=== PATIENT | female | born 1955 | race Caucasian/White ===

== ENCOUNTER 2017-05-30 17:58 | Inpatient (IN) | payer MEDICARE, OTHER ==
[~2017-05-30] VITALS: Ht 172.7 cm; Wt 127.5 kg
[2017-05-30 18:30] LABS: BASO # 0.1 x10^3/uL (0.0-0.2); BASO % 2 % (0-3); EOS % 2 % (0-3); HEMATOCRIT 36.3 % (36.0-47.0); HEMOGLOBIN 12.2 g/dL (12.0-15.5); LYMPH # 2.2 x10^3/uL (1.0-4.8); LYMPH % 37 % (24-48); MEAN CORPUSCULAR HEMOGLOBIN 34 pg (25-35); MEAN CORPUSCULAR HGB CONC 34 g/dL (31-37); MEAN CORPUSCULAR VOLUME 100 fL (79-100); MONO % 8 % (0-9); NEUT % 52 % (31-73); PLATELET COUNT 161 x10^3/uL (140-400); RED BLOOD COUNT 3.65 x10^6/uL (3.50-5.40); RED CELL DISTRIBUTION WIDTH 16.1 % (11.5-14.5); WHITE BLOOD COUNT 6.1 x10^3/uL (4.0-11.0)
[2017-05-30] MEDS ORDERED: fentaNYL PF VIAL 100 MCG/2 ML VIAL IV PRN (18:30)
[2017-05-30] MEDS: NITROGLYCERIN SUBLINGUAL 0.4 MG BOTTLE OF 25. SL PRN ×2 (18:32→18:51)
[2017-05-30 18:46] LABS: CALCIUM 9.4 mg/dL (8.5-10.1); CREATININE 0.7 mg/dL (0.6-1.0); GFR 85.6; POTASSIUM 4.5 mmol/L (3.5-5.1)
--- NOTE | 2017-05-30 18:53 | ED.ADGEN ---
Past Medical History Past Medical History: A-Fib, Anemia, Anxiety, Depression, Hypertension, Seizure , Schizophrenia Additional Past Medical Histor: PEPTIC ULCER, PARKINSON'S DISEASE Alcohol Use: None Drug Use: None Adult General Chief Complaint Chief Complaint: CHEST PAIN HPI HPI Patient is a 61 year old [woman, history of atrial fibrillation, hypertension, Parkinson's disease, obesity, neuropathy, Diabetes mellitus, who presents the emergency department via EMS with a complaint of left-sided chest pain that she states began a few hours ago. Patient states that she awoke from a nap, and noted that she was having pain in the left side of her chest, denies any radiation, states it is worse with pressure on the chest and with motion, denies any injuries. Denies any similar to previously. She does feel silly short of breath. She is also complaining of mild nausea. Denies any diarrhea, states that she will have occasional flank pain in the right side for the past several days, and that she is having increasing pain in both her feet. Both lower extremities noted to be tightly wrapped up to the knees, which patient states "is always like that because of the neuropathy". She denies any new injuries, any headache, any lightheadedness or dizziness, any vomiting, any diarrhea, any urinary complaints. Patient presents from [facility]. Patient is declining IV access. Review of Systems Review of Systems Constitutional: Denies fever or chills. [] Eyes: Denies change in visual acuity. [] HENT: Denies nasal congestion or sore throat. [] Respiratory: Denies cough or shortness of breath. [] Cardiovascular: Left-sided chest pain, worse with motion and with palpation. No edema. GI: Denies abdominal pain, nausea, vomiting, bloody stools or diarrhea. [] : Denies dysuria. [] Musculoskeletal: Denies back pain or joint pain. [] Integument: Denies rash. [] Neurologic: Denies headache, focal weakness or sensory changes. [] Endocrine: Denies polyuria or polydipsia. [] Lymphatic: Denies swollen glands. [] Psychiatric: Denies depression or anxiety. [] Current Medications Current Medications Current Medications Medications (Trade) Dose Ordered Sig/Yoan Start Time Stop Time Status Last Admin Dose Admin Fentanyl Citrate (Fentanyl 2ml Vial) 25 mcg PRN Q15MIN PRN 05/30/17 18:30 05/31/17 18:29 05/30/17 18:44 25 MCG Nitroglycerin (Nitrostat) 0.4 mg PRN Q5MIN PRN 05/30/17 18:30 05/30/17 18:51 0.4 MG Allergies Allergies Allergies Coded Allergies Type Severity Reaction Last Updated Verified sulfamethoxazole Allergy Severe Hives 05/30/17 Yes ibuprofen Adverse Reaction Severe 05/30/17 Yes prochlorperazine Adverse Reaction Severe Swelling 05/30/17 Yes carisoprodol Adverse Reaction Intermediate 05/30/17 Yes Penicillins Adverse Reaction Unknown Nausea 05/30/17 Yes diphenhydramine Adverse Reaction Unknown Nausea 05/30/17 Yes Physical Exam Physical Exam Constitutional: Well developed, well nourished, no acute distress, non-toxic appearance. [] HENT: Normocephalic, atraumatic, bilateral external ears normal, oropharynx moist, no oral exudates, nose normal. [] Eyes: PERRLA, EOMI, conjunctiva normal, no discharge. [] Neck: Normal range of motion, no tenderness, supple, no stridor. [] Cardiovascular:Heart rate regular rhythm, no murmur , S1, S2, rubs or gallops. Patient with reproducible left anterior chest wall tenderness to palpation, no crepitus, deformity, lesions identified.[] Lungs & Thorax: Bilateral breath sounds clear to auscultation, no wheezing, rhonchi, rales. No chest wall crepitus as stated. Tenderness is stated.[] Abdomen: Bowel sounds normal, obese, soft, no tenderness, no masses, no pulsatile masses. [] Skin: Warm, dry, no erythema, no rash. [] Back: No tenderness, no CVA tenderness. [] Extremities: No tenderness, no cyanosis, no clubbing, ROM intact, patient with trace pitting bilaterally, with chronic venous stasis changes noted. Patient with significant neuropathy Neurologic: Alert and oriented X 3, normal motor function, normal sensory function, no focal deficits noted. [] Psychologic: Affect normal, judgement normal, mood normal. [] Current Patient Data Vital Signs Vital Signs Date Time Temp Pulse Resp B/P (MAP) Pulse Ox O2 Delivery O2 Flow Rate FiO2 05/30/17 20:00 48 10 123/70 (87) 98 Room Air 05/30/17 18:00 97.6 97.6 Lab Values Laboratory Tests Test 05/30/17 18:10 05/30/17 18:15 White Blood Count 6.1 x10^3/uL (4.0-11.0) Red Blood Count 3.65 x10^6/uL (3.50-5.40) Hemoglobin 12.2 g/dL (12.0-15.5) Hematocrit 36.3 % (36.0-47.0) Mean Corpuscular Volume 100 fL (79-100) Mean Corpuscular Hemoglobin 34 pg (25-35) Mean Corpuscular Hemoglobin Concent 34 g/dL (31-37) Red Cell Distribution Width 16.1 % (11.5-14.5) H Platelet Count 161 x10^3/uL (140-400) Neutrophils (%) (Auto) 52 % (31-73) Lymphocytes (%) (Auto) 37 % (24-48) Monocytes (%) (Auto) 8 % (0-9) Eosinophils (%) (Auto) 2 % (0-3) Basophils (%) (Auto) 2 % (0-3) Neutrophils # (Auto) 3.1 x10^3uL (1.8-7.7) Lymphocytes # (Auto) 2.2 x10^3/uL (1.0-4.8) Monocytes # (Auto) 0.5 x10^3/uL (0.0-1.1) Eosinophils # (Auto) 0.1 x10^3/uL (0.0-0.7) Basophils # (Auto) 0.1 x10^3/uL (0.0-0.2) Prothrombin Time 12.5 SEC (11.7-14.0) Prothrombin Time INR 1.0 (0.8-1.1) PTT 38 SEC (24-38) Sodium Level 137 mmol/L (136-145) Potassium Level 4.5 mmol/L (3.5-5.1) Chloride Level 101 mmol/L (98-107) Carbon Dioxide Level 27 mmol/L (21-32) Anion Gap 9 (6-14) Blood Urea Nitrogen 17 mg/dL (7-20) Creatinine 0.7 mg/dL (0.6-1.0) Estimated GFR (Cockcroft-Gault) 85.6 Glucose Level 96 mg/dL (70-99) Calcium Level 9.4 mg/dL (8.5-10.1) Total Bilirubin 0.2 mg/dL (0.2-1.0) Direct Bilirubin 0.1 mg/dL (0.0-0.2) Aspartate Amino Transferase (AST) 21 U/L (15-37) Alanine Aminotransferase (ALT) 17 U/L (14-59) Alkaline Phosphatase 73 U/L (46-116) Troponin I Quantitative < 0.017 ng/mL (0.000-0.055) AJ-Ivu-T-Type Natriuretic Peptide 175 pg/mL (0-124) H Total Protein 6.3 g/dL (6.4-8.2) L Albumin 2.8 g/dL (3.4-5.0) L Lipase 196 U/L (73-393) Thyroid Stimulating Hormone (TSH) 2.703 uIU/mL (0.358-3.74) Urine Collection Type Unknown Urine Color Yellow Urine Clarity Clear Urine pH 6.5 Urine Specific [place] 1.015 Urine Protein Negative mg/dL (NEG-TRACE) Urine Glucose (UA) Negative mg/dL (NEG) Urine Ketones (Stick) Negative mg/dL (NEG) Urine Blood Negative (NEG) Urine Nitrite Negative (NEG) Urine Bilirubin Negative (NEG) Urine Urobilinogen Dipstick 0.2 mg/dL (0.2 mg/dL) Urine Leukocyte Esterase Negative (NEG) Urine RBC 0 /HPF (0-2) Urine WBC Occ /HPF (0-4) Urine Squamous Epithelial Cells Many /LPF Urine Bacteria Few /HPF (0-FEW) Urine Opiates Screen Pos (NEG) Urine Methadone Screen Neg (NEG) Urine Barbiturates Pos (NEG) Urine Phencyclidine Screen Neg (NEG) Urine Amphetamine/Methamphetamine Neg (NEG) Urine Benzodiazepines Screen Pos (NEG) Urine Cocaine Screen Neg (NEG) Urine Cannabinoids Screen Neg (NEG) Urine Ethyl Alcohol Neg (NEG) Laboratory Tests 05/30/17 18:10 Laboratory Tests 05/30/17 18:10 EKG EKG EC: Sinus rhythm, heart rate 58 beats are minute, upright axis, QTC of 436, MN 172, QRS of 92, no ST elevations or depressions, abnormal ECG, with nonspecific T-wave changes in inferior leads, does not meet STEMI criteria. As interpreted by me. Radiology/Procedures Radiology/Procedures Chest x-ray: One view: Normal cardiopulmonary silhouette, no significant infiltrates, effusions, no pneumothorax, no soft tissue or bone abdomen was identified. As interpreted by me. [facility] [address] [place] [address] IMAGING REPORT Signed PATIENT: MARCO ANTONIO MCCARTY ACCOUNT: [id number] : 1955 LOCATION: ER AGE: 61 SEX: F EXAM STATUS: REG ER ORD. PHYSICIAN: NADEGE KAY DO REASON: Leg swelling/pain/CP/SOB PROCEDURE: VENOUS LOWER EXT BILATERAL BILATERAL LOWER EXTREMITY ULTRASOUND WITH DOPPLER 05/30/2017 7:12 PM Clinical Information: Bilateral lower extremity swelling, chest pain . Comparison: None. Technique: Multiple grayscale, color Doppler, and spectral Doppler sonographic images of the bilateral lower extremity venous structures were obtained. Findings: Evaluation limited secondary to body habitus and lower extremity edema. The right common femoral, femoral, and popliteal veins exhibit normal compression, respiratory phasicity, and augmentation. No intraluminal thrombi are identified. Color Doppler flow is demonstrated in the right posterior tibial and greater saphenous veins. The left common femoral, femoral, and popliteal veins exhibit normal compression, respiratory phasicity, and augmentation. No intraluminal thrombi are identified. Color Doppler flow is demonstrated in the left posterior tibial and greater saphenous veins.. Impression: No evidence for deep venous thrombosis involving bilateral lower extremities. Evaluation of the leg veins is limited secondary to body habitus and lower extremity edema. Electronically signed by: Ange Lucas MD (05/30/2017 7:54 PM) [facility] DICTATED and SIGNED BY: ANGE LUCAS MD DATE: 05/30/171950 CC: NADEGE KAY DO; FARRUKH BHATTI ~ Course & Med Decision Making Course & Med Decision Making Pertinent Labs and Imaging studies reviewed. (See chart for details) Lengthy discussion at bedside with patient regarding utility of IV access, laboratory studies. After lengthy discussion patient is agreeable to being stuck for labs, but is still refusing an IV. I did discuss at length the patient that this will severely limits my ability to evaluate her effectively and provide treatment in the ED. Patient states she understands, however she has had "bad experiences" with IUDs before, and is adamant that she not have an IV placed this time. Laboratory studies obtained, along with x-ray of the chest , and Dopplers of the bilateral extremities. No concerning findings identified. However patient noted to be progressively bradycardic, with heart rate dropping down into the low 40s, and then bumping up into the 60s, with patient's complaint of chest pain, shortness of breath, and other symptoms along with a copy medical history, patient is agreeable for [place] or the hospital, all she still declining IV. We did note that the patient is under guardianship, did attempt to contact patient's listed guardians at several numbers without success. After multiple discussions at bedside, patient is agreeable and having IV placed, multiple attempts made, including by anesthesia GLACIOLOGIST, without success , IV eventually placed in the ED. Patient was evaluated by Dr. Samuel of internal medicine in the emergency department, accepted to her service as a full admission to the medical telemetry floor, with bridge orders entered per discussion. Dragon Disclaimer Dragon Disclaimer This electronic medical record was generated, in whole or in part, using a voice recognition dictation system. Departure Impression: Primary Impression: Bradycardia Additional Impression: Chest pain Disposition: ADMITTED INPATIENT Admitting Physician: Val Samuel Condition: IMPROVED Problem Qualifiers NADEGE KAY DO May 30, 2017 18:53
[2017-05-30 18:54] LABS: ALBUMIN 2.8 g/dL (3.4-5.0); DIRECT BILIRUBIN 0.1 mg/dL (0.0-0.2); TOTAL BILIRUBIN 0.2 mg/dL (0.2-1.0); TOTAL PROTEIN 6.3 g/dL (6.4-8.2)
[2017-05-30 18:58] LABS: BILIRUBIN,URINE NEGATIVE (NEG); GLUCOSE,URINE NEGATIVE (NEG); NITRITE,URINE NEGATIVE (NEG); PH,URINE 6.5; PROTEIN,URINE NEGATIVE (NEG-TRACE); UROBILINOGEN,URINE 0.2 mg/dL (0.2 mg/dL)
[2017-05-30 19:05] LABS: BARBITURATES POS (NEG); BENZODIAZEPINES POS (NEG); CANNABINOIDS NEG (NEG); COCAINE NEG (NEG); METHADONE NEG (NEG); OPIATES POS (NEG); PHENCYCLIDINE NEG (NEG)
[2017-05-30 19:09] LABS: BACTERIA,URINE FEW /HPF (0-FEW); RBC,URINE 0 /HPF (0-2); SQUAMOUS EPITHELIAL CELL,UR MANY /LPF; WBC,URINE OCC /HPF (0-4)
[2017-05-30 19:10] LABS: PROTHROMBIN TIME PATIENT 12.5 SEC (11.7-14.0)
--- NOTE | 2017-05-30 19:57 | RAD ---
BILATERAL LOWER EXTREMITY ULTRASOUND WITH DOPPLER 05/30/2017 7:12 PM Clinical Information: Bilateral lower extremity swelling, chest pain . Comparison: None. Technique: Multiple grayscale, color Doppler, and spectral Doppler sonographic images of the bilateral lower extremity venous structures were obtained. Findings: Evaluation limited secondary to body habitus and lower extremity edema. The right common femoral, femoral, and popliteal veins exhibit normal compression, respiratory phasicity, and augmentation. No intraluminal thrombi are identified. Color Doppler flow is demonstrated in the right posterior tibial and greater saphenous veins. The left common femoral, femoral, and popliteal veins exhibit normal compression, respiratory phasicity, and augmentation. No intraluminal thrombi are identified. Color Doppler flow is demonstrated in the left posterior tibial and greater saphenous veins.. Impression: No evidence for deep venous thrombosis involving bilateral lower extremities. Evaluation of the leg veins is limited secondary to body habitus and lower extremity edema. Electronically signed by: Joselin Eduardo MD (05/30/2017 7:54 PM) [facility]
[2017-05-30] MEDS ORDERED: BISACODYL 10 MG SUPP.RECT. PR PRN (20:30)
[2017-05-30] MEDS ORDERED: ASPIRIN CHEWABLE 81 MG TABLET. PO ONE (20:30)
[2017-05-30] MEDS ORDERED: MORPHINE SULFATE 2 MG/ML DISP.SYRIN. IV PRN (20:30)
[2017-05-30] MEDS ORDERED: LACTULOSE 20 GM/30 ML SOLUTION. PO PRN (20:30)
[2017-05-30] MEDS ORDERED: CALCIUM CARBONATE 500 MG TAB.CHEW PO PRN (20:30)
[2017-05-30] MEDS ORDERED: MAG HYDROX/ALUMINUM HYD/SIMETH 30 ML ORAL.SUSP PO PRN (20:30)
[2017-05-30] MEDS ORDERED: ACETAMINOPHEN 325 MG TABLET. PO PRN (20:30)
[2017-05-30] MEDS ORDERED: ONDANSETRON PF 4 MG/2 ML VIAL. IV PRN (20:30)
[2017-05-30] MEDS ORDERED: KETOROLAC 15 MG/ML VIAL. IV PRN (20:30)
[2017-05-30] MEDS ORDERED: IV NORMAL SALINE 1000ML BAG 1,000 ML IV ONE (20:45)
--- NOTE | 2017-05-30 20:49 | PDOC1 ---
History and Physical Date of Admission Date of Admission DATE: 05/30/17 TIME: 20:43 Identification/Chief Complaint Chief Complaint CP Problems: Source Source: Caregiver, Chart review, Patient History of Present Illness History of Present Illness 61 y.o obese female, SNU from , sent by staff bec of CP. REst of details of her CP cant be elicited as I see her as she does not want to be admitted, does not want IV line and is concerned about her stuff in SNU being stolen and not with her. She cant decide on her own accord, there is mention of guardianship and she mentions a mother but ER has called all the numbers she has given to no avail, SNu has been called too, Labs ok, except mild creat 1, .2. Braeden 47 but no reports of syncopal or presyncopal event, Still waiting on home meds. EKG CXR so far reassuring Past Medical History Past Medical History unknown, awaiting home meds Past Surgical History Past Surgical History: Other (unknown, pt not cooperative) Family History Family History: Family History Unknown Social History Smoke: No ALCOHOL: none Drugs: None Current Medications Current Medications Current Medications Fentanyl Citrate (Fentanyl 2ml Vial) 25 mcg PRN Q15MIN PRN IV PAIN GREATER THAN 3/10 Last administered on 05/30/17 18:44; Start 05/30/17 at 18:30; Stop at 18:29 Nitroglycerin (Nitrostat) 0.4 mg PRN Q5MIN PRN SL CHEST PAIN Last administered on 05/30/17 18:51; Start 05/30/17 at 18:30 Aspirin (Children'S Aspirin) 324 mg 1X ONCE PO ; Start 05/30/17 at 20:30; Stop 05/30/17 at 20:31; Status DC Allergies Allergies: Coded Allergies: sulfamethoxazole (Verified Allergy, Severe, Hives, 05/30/17) ibuprofen (Verified Adverse Reaction, Severe, 05/30/17) BLEEDING prochlorperazine (Verified Adverse Reaction, Severe, Swelling, 05/30/17) carisoprodol (Verified Adverse Reaction, Intermediate, 05/30/17) Penicillins (Verified Adverse Reaction, Unknown, Nausea, 05/30/17) diphenhydramine (Verified Adverse Reaction, Unknown, Nausea, 05/30/17) ROS Review of System denies any pain or concerns Physical Exam General: Alert, Oriented X3, Cooperative, No acute distress HEENT: Atraumatic, PERRLA, EOMI Lungs: Clear to auscultation Heart: S1S2, no thrills, no rubs, other (braeden sinus) Breasts: Normal, Rt breast nml w/o mass, Lt breast nml w/o mass, Nipples normal Abdomen: Normal bowel sounds, Soft, No tenderness, No hepatosplenomegaly, No masses Rectal Exam: not examined Extremities: No clubbing, No cyanosis, No edema, Normal pulses, No tenderness/ swelling Skin: No rashes, No breakdown, No significant lesion Neuro: Normal gait, Normal speech, Strength at 5/5 X4 ext, Normal tone, Sensation intact, Cranial nerves 3-12 NL, Reflexes 2+ Psych/Mental Status: Mental status NL, Mood NL Vitals Vitals Vital Signs Date Time Temp Pulse Resp B/P (MAP) Pulse Ox O2 Delivery O2 Flow Rate FiO2 05/30/17 18:51 51 107/59 05/30/17 18:44 19 93 Room Air 05/30/17 18:00 97.6 97.6 Labs Labs Laboratory Tests Test 05/30/17 18:10 05/30/17 18:15 White Blood Count 6.1 x10^3/uL (4.0-11.0) Red Blood Count 3.65 x10^6/uL (3.50-5.40) Hemoglobin 12.2 g/dL (12.0-15.5) Hematocrit 36.3 % (36.0-47.0) Mean Corpuscular Volume 100 fL (79-100) Mean Corpuscular Hemoglobin 34 pg (25-35) Mean Corpuscular Hemoglobin Concent 34 g/dL (31-37) Red Cell Distribution Width 16.1 % (11.5-14.5) Platelet Count 161 x10^3/uL (140-400) Neutrophils (%) (Auto) 52 % (31-73) Lymphocytes (%) (Auto) 37 % (24-48) Monocytes (%) (Auto) 8 % (0-9) Eosinophils (%) (Auto) 2 % (0-3) Basophils (%) (Auto) 2 % (0-3) Neutrophils # (Auto) 3.1 x10^3uL (1.8-7.7) Lymphocytes # (Auto) 2.2 x10^3/uL (1.0-4.8) Monocytes # (Auto) 0.5 x10^3/uL (0.0-1.1) Eosinophils # (Auto) 0.1 x10^3/uL (0.0-0.7) Basophils # (Auto) 0.1 x10^3/uL (0.0-0.2) Prothrombin Time 12.5 SEC (11.7-14.0) Prothromb Time International Ratio 1.0 (0.8-1.1) Activated Partial Thromboplast Time 38 SEC (24-38) Sodium Level 137 mmol/L (136-145) Potassium Level 4.5 mmol/L (3.5-5.1) Chloride Level 101 mmol/L (98-107) Carbon Dioxide Level 27 mmol/L (21-32) Anion Gap 9 (6-14) Blood Urea Nitrogen 17 mg/dL (7-20) Creatinine 0.7 mg/dL (0.6-1.0) Estimated GFR (Cockcroft-Gault) 85.6 Glucose Level 96 mg/dL (70-99) Calcium Level 9.4 mg/dL (8.5-10.1) Total Bilirubin 0.2 mg/dL (0.2-1.0) Direct Bilirubin 0.1 mg/dL (0.0-0.2) Aspartate Amino Transf (AST/SGOT) 21 U/L (15-37) Alanine Aminotransferase (ALT/SGPT) 17 U/L (14-59) Alkaline Phosphatase 73 U/L (46-116) Troponin I Quantitative < 0.017 ng/mL (0.000-0.055) LI-Ycb-[id number]-Type Natriuretic Peptide 175 pg/mL (0-124) Total Protein 6.3 g/dL (6.4-8.2) Albumin 2.8 g/dL (3.4-5.0) Lipase 196 U/L (73-393) Urine Collection Type Unknown Urine Color Yellow Urine Clarity Clear Urine pH 6.5 Urine Specific [place] 1.015 Urine Protein Negative mg/dL (NEG-TRACE) Urine Glucose (UA) Negative mg/dL (NEG) Urine Ketones (Stick) Negative mg/dL (NEG) Urine Blood Negative (NEG) Urine Nitrite Negative (NEG) Urine Bilirubin Negative (NEG) Urine Urobilinogen Dipstick 0.2 mg/dL (0.2 mg/dL) Urine Leukocyte Esterase Negative (NEG) Urine RBC 0 /HPF (0-2) Urine WBC Occ /HPF (0-4) Urine Squamous Epithelial Cells Many /LPF Urine Bacteria Few /HPF (0-FEW) Urine Opiates Screen Pos (NEG) Urine Methadone Screen Neg (NEG) Urine Barbiturates Pos (NEG) Urine Phencyclidine Screen Neg (NEG) Urine Amphetamine/Methamphetamine Neg (NEG) Urine Benzodiazepines Screen Pos (NEG) Urine Cocaine Screen Neg (NEG) Urine Cannabinoids Screen Neg (NEG) Urine Ethyl Alcohol Neg (NEG) Laboratory Tests Test 05/30/17 18:10 05/30/17 18:15 White Blood Count 6.1 x10^3/uL (4.0-11.0) Red Blood Count 3.65 x10^6/uL (3.50-5.40) Hemoglobin 12.2 g/dL (12.0-15.5) Hematocrit 36.3 % (36.0-47.0) Mean Corpuscular Volume 100 fL (79-100) Mean Corpuscular Hemoglobin 34 pg (25-35) Mean Corpuscular Hemoglobin Concent 34 g/dL (31-37) Red Cell Distribution Width 16.1 % (11.5-14.5) Platelet Count 161 x10^3/uL (140-400) Neutrophils (%) (Auto) 52 % (31-73) Lymphocytes (%) (Auto) 37 % (24-48) Monocytes (%) (Auto) 8 % (0-9) Eosinophils (%) (Auto) 2 % (0-3) Basophils (%) (Auto) 2 % (0-3) Neutrophils # (Auto) 3.1 x10^3uL (1.8-7.7) Lymphocytes # (Auto) 2.2 x10^3/uL (1.0-4.8) Monocytes # (Auto) 0.5 x10^3/uL (0.0-1.1) Eosinophils # (Auto) 0.1 x10^3/uL (0.0-0.7) Basophils # (Auto) 0.1 x10^3/uL (0.0-0.2) Prothrombin Time 12.5 SEC (11.7-14.0) Prothromb Time International Ratio 1.0 (0.8-1.1) Activated Partial Thromboplast Time 38 SEC (24-38) Sodium Level 137 mmol/L (136-145) Potassium Level 4.5 mmol/L (3.5-5.1) Chloride Level 101 mmol/L (98-107) Carbon Dioxide Level 27 mmol/L (21-32) Anion Gap 9 (6-14) Blood Urea Nitrogen 17 mg/dL (7-20) Creatinine 0.7 mg/dL (0.6-1.0) Estimated GFR (Cockcroft-Gault) 85.6 Glucose Level 96 mg/dL (70-99) Calcium Level 9.4 mg/dL (8.5-10.1) Total Bilirubin 0.2 mg/dL (0.2-1.0) Direct Bilirubin 0.1 mg/dL (0.0-0.2) Aspartate Amino Transf (AST/SGOT) 21 U/L (15-37) Alanine Aminotransferase (ALT/SGPT) 17 U/L (14-59) Alkaline Phosphatase 73 U/L (46-116) Troponin I Quantitative < 0.017 ng/mL (0.000-0.055) ZQ-Oij-T-Type Natriuretic Peptide 175 pg/mL (0-124) Total Protein 6.3 g/dL (6.4-8.2) Albumin 2.8 g/dL (3.4-5.0) Lipase 196 U/L (73-393) Urine Collection Type Unknown Urine Color Yellow Urine Clarity Clear Urine pH 6.5 Urine Specific [place] 1.015 Urine Protein Negative mg/dL (NEG-TRACE) Urine Glucose (UA) Negative mg/dL (NEG) Urine Ketones (Stick) Negative mg/dL (NEG) Urine Blood Negative (NEG) Urine Nitrite Negative (NEG) Urine Bilirubin Negative (NEG) Urine Urobilinogen Dipstick 0.2 mg/dL (0.2 mg/dL) Urine Leukocyte Esterase Negative (NEG) Urine RBC 0 /HPF (0-2) Urine WBC Occ /HPF (0-4) Urine Squamous Epithelial Cells Many /LPF Urine Bacteria Few /HPF (0-FEW) Urine Opiates Screen Pos (NEG) Urine Methadone Screen Neg (NEG) Urine Barbiturates Pos (NEG) Urine Phencyclidine Screen Neg (NEG) Urine Amphetamine/Methamphetamine Neg (NEG) Urine Benzodiazepines Screen Pos (NEG) Urine Cocaine Screen Neg (NEG) Urine Cannabinoids Screen Neg (NEG) Urine Ethyl Alcohol Neg (NEG) VTE Prophylaxis Ordered VTE Prophylaxis Devices: Yes VTE Pharmacological Prophylaxi: Yes Assessment/Plan Assessment/Plan 1. CP 2. Bradycardia 3. NIMA 4. Obesity with BMI 41.8 5. MEntal delay, some PLAN: Took signif time for ER manager staffing, myself to encourage her to allow IV access, unfortunately might need to do drastic measures, (hold her down etc) Cycle CECards consult Await home meds No AV jaswant blocking agents SUpprotive meds In pt admit IVF if IV access - re that NIMA LAbs savanna Check TSH re bradycardia, obesity etc Seen at ER 4 Dw ER staff TANYA COOK MD May 30, 2017 20:49
[2017-05-30] MEDS ORDERED: ENOXAPARIN 40 MG/0.4 ML SYRINGE. SQ SCH (21:30)
[2017-05-30 22:45] VITALS: BP 133/63
[2017-05-30] MEDS: oxyCODONE IR 5 MG TABLET PO PRN (23:03)
[2017-05-31] MEDS: oxyCODONE IR 5 MG TABLET PO PRN ×2 (02:47→10:57)
[2017-05-31 03:00] VITALS: BP 119/53
[2017-05-31] MEDS ORDERED: GABA-585 PO (03:19)
[2017-05-31] MEDS ORDERED: FURO20TA3 PO (03:19)
[2017-05-31] MEDS ORDERED: MELA3TAB2 PO (03:19)
[2017-05-31] MEDS ORDERED: FLEC100T PO (03:19)
[2017-05-31] MEDS ORDERED: LACT20SO PO (03:19)
[2017-05-31] MEDS ORDERED: DIVA250T PO ×2 (03:19)
[2017-05-31] MEDS ORDERED: MAG360OR24 PO (03:19)
[2017-05-31] MEDS ORDERED: HYDR-2762 PO (03:19)
[2017-05-31] MEDS ORDERED: IPRA3AMP NEB (03:19)
[2017-05-31] MEDS ORDERED: AMAN100T PO (03:19)
[2017-05-31] MEDS ORDERED: DOCU100C28 PO (03:19)
[2017-05-31] MEDS ORDERED: LISI10TA2 PO (03:19)
[2017-05-31] MEDS ORDERED: BENZ1LOZ48 MM (03:19)
[2017-05-31] MEDS ORDERED: CALC200T23 PO (03:19)
[2017-05-31] MEDS ORDERED: DIAZEPAM10 MG PO (03:19)
[2017-05-31] MEDS ORDERED: DICY10CA53 PO (03:19)
[2017-05-31] MEDS ORDERED: OMEG1CAP38 PO (03:34)
[2017-05-31] MEDS ORDERED: ACET325T9 PO (03:34)
[2017-05-31] MEDS ORDERED: NITR0.4T22 SL (03:34)
[2017-05-31] MEDS ORDERED: QUET100T4 PO (03:34)
[2017-05-31] MEDS ORDERED: PRIM50TA PO (03:34)
[2017-05-31] MEDS ORDERED: TRIH5TAB2 PO (03:34)
[2017-05-31] MEDS ORDERED: SUCR1ORA11 PO (03:34)
[2017-05-31] MEDS ORDERED: SERT50TA PO (03:34)
[2017-05-31] MEDS ORDERED: OMEP40CA5 PO (03:34)
[2017-05-31] MEDS ORDERED: POTASSIUM CHLO10 MEQ PO (03:34)
[2017-05-31] MEDS ORDERED: RISP1TAB43 PO (03:34)
[2017-05-31] MEDS ORDERED: HYDROcodone/APAP 7.5/325MG 1 TAB TABLET PO PRN (05:15)
[2017-05-31] MEDS ORDERED: CALCIUM CARBONATE 500 MG TAB.CHEW PO PRN (05:15)
[2017-05-31] MEDS ORDERED: ACETAMINOPHEN 325 MG TABLET. PO PRN (05:15)
[2017-05-31] MEDS ORDERED: NON FORMULARY ITEM (Mag Hydrox/Al Hydrox/Simeth (Alum-Mag Hydroxide-Simeth Liq) 30 ML) PO PRN (05:15)
[2017-05-31] MEDS ORDERED: BENZOCAINE/MENTHOL LOZENGE. MM PRN (05:15)
[2017-05-31] MEDS ORDERED: NITROGLYCERIN SUBLINGUAL 0.4 MG BOTTLE OF 25. SL PRN (05:15)
[2017-05-31] MEDS ORDERED: LACTULOSE 20 GM/30 ML SOLUTION. PO PRN (05:15)
--- NOTE | 2017-05-31 06:33 | EKG ---
[facility] [address] [place] [address] Test Date: 2017-05-30 Test Time: 18:00:12 Pat Name: MARCO ANTONIO MCCARTY Department: Room: 248 1 Gender: F Telephone Interceptor Operator: SWETA : 1955 Requested By: NADEGE KAY Order Number: [id number] Reading MD: Chai Lerner Measurements Intervals [place] Rate: 58 P: 56 MO: 172 QRS: 6 QRSD: 92 T: 36 QT: 440 QTc: 436 Interpretive Statements SINUS RHYTHM NON SPECIFIC T ABNORMALITY RI6.01 Unconfirmed report No previous ECG available for comparison Electronically Signed On 06-09-2017 12:46:08 CDT by Chai Lerner
[2017-05-31 07:00] VITALS: BP 123/47
[2017-05-31] MEDS: IPRATRPIUM/ALBUTEROL 0.5/2.5MG 3 ML NEBU. NEB SCH ×4 (08:14→19:24)
--- NOTE | 2017-05-31 08:31 | RAD ---
EXAM: Chest, single view. HISTORY: Chest pain. COMPARISON: None. FINDINGS: A frontal view of the chest obtained. There is bilateral left mid to lower thorax opacity. There is no effusion or pneumothorax. The heart is normal in size. IMPRESSION: Lateral left mid to lower thorax opacity likely due to pneumonic infiltrate. Follow-up to confirm complete resolution and exclude an underlying lesion.
[2017-05-31] MEDS ORDERED: POTASSIUM CHLORIDE 10 MEQ TABLET.ER. PO SCH (09:00)
[2017-05-31] MEDS ORDERED: FLECAINIDE ACETATE 50 MG TABLET. PO SCH (09:00)
[2017-05-31] MEDS ORDERED: FUROSEMIDE 20 MG TABLET PO SCH (09:00)
[2017-05-31] MEDS ORDERED: DOCUSATE SODIUM 100 MG CAPSULE. PO SCH (09:00)
--- NOTE | 2017-05-31 09:54 | PDOC2 ---
CARDIAC CONSULT DATE OF CONSULT Date of Consult DATE: 05/31/17 TIME: 09:24 REASON FOR CONSULT Reason for Consult: Chest pain, bradycardia REFERRING PHYSICIAN Referring Physician: Jimmie SOURCE Source: Chart review, Patient HISTORY OF PRESENT ILLNESS HISTORY OF PRESENT ILLNESS This is a 61 yo female admitted for complains of chest pain. Pt is such a poor historian and her is not available for further details. Per pt, she said that she was having chest pressure yesterday isolated to left chest. Also complain of lower back pain. No associated symptoms of SOA, n/v and diaphoresis. She resides in a [facility] and was given NTG. Her pain has not recurred since her initial discomfort. Per chart review and per pt, no prior CAD, possible DVT in the remote past but no PE. She continues to smoke tobacco. She possibly has hx of PAFIB as she is on flecainide but not on any ASA, BB/CCB or any NOAC/OAC. To add she does have hx of of intermittent dizziness but no passing out. 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 PAST MEDICAL HISTORY Cardiovascular: AFIB (?), HTN CENTRAL NERVOUS SYSTEM: Periperal neuropathy, Seizure, Other (parkinsons?) GI: Constipation, GERD Heme/Onc: No pertinent hx, Anemia NOS Psych: Anxiety, Schizophrenia Musculoskeletal: Osteoarthritis, Other (debility, morbid obesity) Rheumatologic: No pertinent hx ENT: No pertinent hx Renal/: No pertinent hx Endocrine: Diabetes (2) Dermatology: No pertinent hx PAST SURGICAL HISTORY Past Surgical History: Other (unknown) FAMILY HISTORY Family History: Family History Unknown SOCIAL HISTORY Smoke: 1 pack per day ALCOHOL: none Drugs: None Lives: [facility] CURRENT MEDICATIONS CURRENT MEDICATIONS Current Medications Medications (Trade) Dose Ordered Sig/Yoan Route PRN Reason Start Time Stop Time Status Last Admin Dose Admin Fentanyl Citrate (Fentanyl 2ml Vial) 25 mcg PRN Q15MIN PRN IV PAIN GREATER THAN 3/10 05/30/17 18:30 05/31/17 18:29 05/30/17 18:44 Nitroglycerin (Nitrostat) 0.4 mg PRN Q5MIN PRN SL CHEST PAIN 05/30/17 18:30 05/31/17 05:39 DC 05/30/17 18:51 Aspirin (Children'S Aspirin) 324 mg 1X ONCE PO 05/30/17 20:30 05/30/17 20:31 DC 05/30/17 20:46 Oxycodone HCl (Roxicodone) 5 mg PRN Q3HRS PRN PO BREAKTHROUGH PAIN 05/30/17 20:30 05/31/17 02:47 Enoxaparin Sodium (Lovenox 40mg Syringe) 40 mg Q24H SQ 05/30/17 21:30 05/30/17 23:08 Sodium Chloride 1,000 ml @ 100 mls/hr 1X ONCE IV 05/30/17 20:45 05/31/17 06:44 DC 05/30/17 23:02 Albuterol/ Ipratropium (Duoneb) 3 ml RTQID NEB 05/31/17 08:00 05/31/17 08:14 ALLERGIES ALLERGIES: Coded Allergies: sulfamethoxazole (Verified Allergy, Severe, Hives, 05/30/17) ibuprofen (Verified Adverse Reaction, Severe, 05/30/17) BLEEDING prochlorperazine (Verified Adverse Reaction, Severe, Swelling, 05/30/17) carisoprodol (Verified Adverse Reaction, Intermediate, 05/30/17) Penicillins (Verified Adverse Reaction, Unknown, Nausea, 05/30/17) diphenhydramine (Verified Adverse Reaction, Unknown, Nausea, 05/30/17) ROS Review of System limited, poor historian PHYSICAL EXAM General: Alert, Oriented X3, Cooperative, No acute distress HEENT: Atraumatic, Mucous membr. moist/pink Lungs: Other (diminished bases) Heart: Regular rate, Normal S1, Normal S2, Other (2/6 systolic murmur to LLS border, distant heart sounds) Extremities: No cyanosis, Other (1+ bilateral LE pitting edema) Skin: No breakdown, No significant lesion Neuro: Normal speech, Sensation intact Psych/Mental Status: Mental status NL, Other (anxious) MUSCULOSKELETAL: Osteoarthritic changes both hands VITALS VITALS Vital Signs Date Time Temp Pulse Resp B/P (MAP) Pulse Ox O2 Delivery O2 Flow Rate FiO2 05/31/17 08:16 Nasal Cannula 2.0 05/31/17 07:00 98.4 63 20 123/47 (72) 96 98.4 LABS Lab: Laboratory Tests Test 05/30/17 18:10 05/30/17 18:15 White Blood Count 6.1 x10^3/uL (4.0-11.0) Red Blood Count 3.65 x10^6/uL (3.50-5.40) Hemoglobin 12.2 g/dL (12.0-15.5) Hematocrit 36.3 % (36.0-47.0) Mean Corpuscular Volume 100 fL (79-100) Mean Corpuscular Hemoglobin 34 pg (25-35) Mean Corpuscular Hemoglobin Concent 34 g/dL (31-37) Red Cell Distribution Width 16.1 % (11.5-14.5) Platelet Count 161 x10^3/uL (140-400) Neutrophils (%) (Auto) 52 % (31-73) Lymphocytes (%) (Auto) 37 % (24-48) Monocytes (%) (Auto) 8 % (0-9) Eosinophils (%) (Auto) 2 % (0-3) Basophils (%) (Auto) 2 % (0-3) Neutrophils # (Auto) 3.1 x10^3uL (1.8-7.7) Lymphocytes # (Auto) 2.2 x10^3/uL (1.0-4.8) Monocytes # (Auto) 0.5 x10^3/uL (0.0-1.1) Eosinophils # (Auto) 0.1 x10^3/uL (0.0-0.7) Basophils # (Auto) 0.1 x10^3/uL (0.0-0.2) Prothrombin Time 12.5 SEC (11.7-14.0) Prothromb Time International Ratio 1.0 (0.8-1.1) Activated Partial Thromboplast Time 38 SEC (24-38) Sodium Level 137 mmol/L (136-145) Potassium Level 4.5 mmol/L (3.5-5.1) Chloride Level 101 mmol/L (98-107) Carbon Dioxide Level 27 mmol/L (21-32) Anion Gap 9 (6-14) Blood Urea Nitrogen 17 mg/dL (7-20) Creatinine 0.7 mg/dL (0.6-1.0) Estimated GFR (Cockcroft-Gault) 85.6 Glucose Level 96 mg/dL (70-99) Calcium Level 9.4 mg/dL (8.5-10.1) Total Bilirubin 0.2 mg/dL (0.2-1.0) Direct Bilirubin 0.1 mg/dL (0.0-0.2) Aspartate Amino Transf (AST/SGOT) 21 U/L (15-37) Alanine Aminotransferase (ALT/SGPT) 17 U/L (14-59) Alkaline Phosphatase 73 U/L (46-116) Troponin I Quantitative < 0.017 ng/mL (0.000-0.055) EF-Gws-F-Type Natriuretic Peptide 175 pg/mL (0-124) Total Protein 6.3 g/dL (6.4-8.2) Albumin 2.8 g/dL (3.4-5.0) Lipase 196 U/L (73-393) Thyroid Stimulating Hormone (TSH) 2.703 uIU/mL (0.358-3.74) Urine Collection Type Unknown Urine Color Yellow Urine Clarity Clear Urine pH 6.5 Urine Specific [place] 1.015 Urine Protein Negative mg/dL (NEG-TRACE) Urine Glucose (UA) Negative mg/dL (NEG) Urine Ketones (Stick) Negative mg/dL (NEG) Urine Blood Negative (NEG) Urine Nitrite Negative (NEG) Urine Bilirubin Negative (NEG) Urine Urobilinogen Dipstick 0.2 mg/dL (0.2 mg/dL) Urine Leukocyte Esterase Negative (NEG) Urine RBC 0 /HPF (0-2) Urine WBC Occ /HPF (0-4) Urine Squamous Epithelial Cells Many /LPF Urine Bacteria Few /HPF (0-FEW) Urine Opiates Screen Pos (NEG) Urine Methadone Screen Neg (NEG) Urine Barbiturates Pos (NEG) Urine Phencyclidine Screen Neg (NEG) Urine Amphetamine/Methamphetamine Neg (NEG) Urine Benzodiazepines Screen Pos (NEG) Urine Cocaine Screen Neg (NEG) Urine Cannabinoids Screen Neg (NEG) Urine Ethyl Alcohol Neg (NEG) ASSESSMENT/PLAN ASSESSMENT/PLAN 1. Atypical CP: troponin series normal, EKG SB without acute changes. reproducible and more from back pain. Doubt ACS, suspect MSK. 2. Sinus Bradycardia: QTc 436. Likely vagal episode with possible CAREN. HR slowest in the low 40s, no pauses, BP stable and no BB/CCB/NOAc per regimen Also suspecting multiple interactions with seizure meds and parkinsons meds ( likely induced by regimen) 3. Possible hx of PAFIB: No noted records of this. Allergy to ASA. hives. No noted OAC/NOAC per home meds. It is possible this occurred during one of her seizure episodes. DC flecainide 4. Tobaccoism 5. Hx of head injury. 6. Hx of Seizures and parkinsons? 7. Morbid obesity/debility: BMI 42 8. Suspecting CAREN. Recommendations 1. Lipid panel, Await TTE. 2. DC flecainide. Need event monitor to ascertain AFIB burden and will reevaluate need for rate controlling as well as antiarrhythmic agents. 3. Smoking cessation. 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
[2017-05-31] MEDS: SUCRALFATE 1 GM/10 ML ORAL.SUSP. PO SCH ×4 (10:07→21:11)
[2017-05-31] MEDS: DICYCLOMINE HCL 10 MG CAPSULE PO SCH ×4 (10:08→21:06)
[2017-05-31 11:00] VITALS: BP 127/71
[2017-05-31 11:08] LABS: CREATININE 0.8 mg/dL (0.6-1.0); GFR 73.4; POTASSIUM 4.3 mmol/L (3.5-5.1)
[2017-05-31 11:15] LABS: CHOLESTEROL/HDL RATIO 5.5
[2017-05-31] MEDS: TRIHEXYPHENIDYL 2 MG TABLET. PO SCH ×2 (11:21→21:06)
[2017-05-31] MEDS: PRIMIDONE 50 MG TABLET PO SCH ×3 (11:23→21:07)
[2017-05-31] MEDS: GABAPENTIN 100 MG CAPSULE. PO SCH ×3 (11:23→21:08)
[2017-05-31] MEDS: LISINOPRIL 10 MG TABLET PO SCH (11:24)
[2017-05-31] MEDS: QUEtiapine 100 MG TABLET. PO SCH ×2 (11:24→21:08)
[2017-05-31] MEDS: OMEGA-3 FATTY ACIDS/FISH OIL 1,000 MG CAPSULE. PO SCH ×2 (11:25→21:08)
[2017-05-31] MEDS: DOCUSATE SODIUM 100 MG CAPSULE. PO SCH ×2 (11:25→21:08)
[2017-05-31] MEDS: risperiDONE 1 MG TABLET. PO SCH ×2 (11:26→21:06)
[2017-05-31] MEDS: DIVALPROEX EXTENDED RELEASE 250 MG TAB.ER.24H. PO SCH (11:27)
[2017-05-31] MEDS: AMANTADINE HCL 100 MG CAPSULE PO SCH (11:27)
[2017-05-31] MEDS: ENOXAPARIN 40 MG/0.4 ML SYRINGE. SQ SCH ×2 (11:30→21:11)
--- NOTE | 2017-05-31 11:31 | PDOC ---
PROGRESS NOTES Chief Complaint Chief Complaint 1. CP 2. Bradycardia 3. NIMA 4. Obesity with BMI 41.8 5. MEntal delay, some 6. Chronic back pain History of Present Illness History of Present Illness Requested some adjustments in pain meds Better mentation today VS ok, no calls overnight Just had echo Dw cards, thoughts about adding AC and rate controlling agents Pt claims allergy to ASa BAck pain - which is chronic PLAN: Adjust pain meds to follow her home regimen She is not interested in back injections Follow cards recs re cardiac meds Wants to go home soon - worried about her "stuff" in [facility] Vitals Vitals Vital Signs Date Time Temp Pulse Resp B/P (MAP) Pulse Ox O2 Delivery O2 Flow Rate FiO2 05/31/17 10:57 Room Air 05/31/17 08:16 2.0 05/31/17 07:00 98.4 63 20 123/47 (72) 96 98.4 Physical Exam General: Alert, Oriented X3, Cooperative, No acute distress Abdomen: Normal bowel sounds, Soft, No tenderness, No hepatosplenomegaly, No masses Extremities: No clubbing, No cyanosis, No edema, Normal pulses, No tenderness/ swelling Skin: No rashes, No breakdown, No significant lesion Labs LABS Laboratory Tests Test 05/30/17 18:10 05/30/17 18:15 05/31/17 09:50 White Blood Count 6.1 x10^3/uL (4.0-11.0) Red Blood Count 3.65 x10^6/uL (3.50-5.40) Hemoglobin 12.2 g/dL (12.0-15.5) Hematocrit 36.3 % (36.0-47.0) Mean Corpuscular Volume 100 fL (79-100) Mean Corpuscular Hemoglobin 34 pg (25-35) Mean Corpuscular Hemoglobin Concent 34 g/dL (31-37) Red Cell Distribution Width 16.1 % (11.5-14.5) Platelet Count 161 x10^3/uL (140-400) Neutrophils (%) (Auto) 52 % (31-73) Lymphocytes (%) (Auto) 37 % (24-48) Monocytes (%) (Auto) 8 % (0-9) Eosinophils (%) (Auto) 2 % (0-3) Basophils (%) (Auto) 2 % (0-3) Neutrophils # (Auto) 3.1 x10^3uL (1.8-7.7) Lymphocytes # (Auto) 2.2 x10^3/uL (1.0-4.8) Monocytes # (Auto) 0.5 x10^3/uL (0.0-1.1) Eosinophils # (Auto) 0.1 x10^3/uL (0.0-0.7) Basophils # (Auto) 0.1 x10^3/uL (0.0-0.2) Prothrombin Time 12.5 SEC (11.7-14.0) Prothromb Time International Ratio 1.0 (0.8-1.1) Activated Partial Thromboplast Time 38 SEC (24-38) Sodium Level 137 mmol/L (136-145) 139 mmol/L (136-145) Potassium Level 4.5 mmol/L (3.5-5.1) 4.3 mmol/L (3.5-5.1) Chloride Level 101 mmol/L (98-107) 104 mmol/L (98-107) Carbon Dioxide Level 27 mmol/L (21-32) 31 mmol/L (21-32) Anion Gap 9 (6-14) 4 (6-14) Blood Urea Nitrogen 17 mg/dL (7-20) 13 mg/dL (7-20) Creatinine 0.7 mg/dL (0.6-1.0) 0.8 mg/dL (0.6-1.0) Estimated GFR (Cockcroft-Gault) 85.6 73.4 Glucose Level 96 mg/dL (70-99) 86 mg/dL (70-99) Calcium Level 9.4 mg/dL (8.5-10.1) 9.0 mg/dL (8.5-10.1) Total Bilirubin 0.2 mg/dL (0.2-1.0) Direct Bilirubin 0.1 mg/dL (0.0-0.2) Aspartate Amino Transf (AST/SGOT) 21 U/L (15-37) Alanine Aminotransferase (ALT/SGPT) 17 U/L (14-59) Alkaline Phosphatase 73 U/L (46-116) Troponin I Quantitative < 0.017 ng/mL (0.000-0.055) < 0.017 ng/mL (0.000-0.055) JB-Bnv-O-Type Natriuretic Peptide 175 pg/mL (0-124) Total Protein 6.3 g/dL (6.4-8.2) Albumin 2.8 g/dL (3.4-5.0) Lipase 196 U/L (73-393) Thyroid Stimulating Hormone (TSH) 2.703 uIU/mL (0.358-3.74) Urine Collection Type Unknown Urine Color Yellow Urine Clarity Clear Urine pH 6.5 Urine Specific [place] 1.015 Urine Protein Negative mg/dL (NEG-TRACE) Urine Glucose (UA) Negative mg/dL (NEG) Urine Ketones (Stick) Negative mg/dL (NEG) Urine Blood Negative (NEG) Urine Nitrite Negative (NEG) Urine Bilirubin Negative (NEG) Urine Urobilinogen Dipstick 0.2 mg/dL (0.2 mg/dL) Urine Leukocyte Esterase Negative (NEG) Urine RBC 0 /HPF (0-2) Urine WBC Occ /HPF (0-4) Urine Squamous Epithelial Cells Many /LPF Urine Bacteria Few /HPF (0-FEW) Urine Opiates Screen Pos (NEG) Urine Methadone Screen Neg (NEG) Urine Barbiturates Pos (NEG) Urine Phencyclidine Screen Neg (NEG) Urine Amphetamine/Methamphetamine Neg (NEG) Urine Benzodiazepines Screen Pos (NEG) Urine Cocaine Screen Neg (NEG) Urine Cannabinoids Screen Neg (NEG) Urine Ethyl Alcohol Neg (NEG) Triglycerides Level 239 mg/dL (0-150) Cholesterol Level 166 mg/dL (0-200) LDL Cholesterol, Calculated 88 mg/dL (0-100) VLDL Cholesterol, Calculated 48 mg/dL (0-40) Non-HDL Cholesterol Calculated 136 mg/dL (0-129) HDL Cholesterol 30 mg/dL (40-60) Cholesterol/HDL Ratio 5.5 Review of Systems Review of Systems back pain, chronic Assessment and Plan Assessmemt and Plan Problems Medical Problems: (1) Chest pain Status: Acute Problems: Comment Review of Relevant I have reviewed the following items domonique (where applicable) has been applied. Labs Laboratory Tests Test 05/30/17 18:10 05/30/17 18:15 05/31/17 09:50 White Blood Count 6.1 x10^3/uL (4.0-11.0) Red Blood Count 3.65 x10^6/uL (3.50-5.40) Hemoglobin 12.2 g/dL (12.0-15.5) Hematocrit 36.3 % (36.0-47.0) Mean Corpuscular Volume 100 fL (79-100) Mean Corpuscular Hemoglobin 34 pg (25-35) Mean Corpuscular Hemoglobin Concent 34 g/dL (31-37) Red Cell Distribution Width 16.1 % (11.5-14.5) Platelet Count 161 x10^3/uL (140-400) Neutrophils (%) (Auto) 52 % (31-73) Lymphocytes (%) (Auto) 37 % (24-48) Monocytes (%) (Auto) 8 % (0-9) Eosinophils (%) (Auto) 2 % (0-3) Basophils (%) (Auto) 2 % (0-3) Neutrophils # (Auto) 3.1 x10^3uL (1.8-7.7) Lymphocytes # (Auto) 2.2 x10^3/uL (1.0-4.8) Monocytes # (Auto) 0.5 x10^3/uL (0.0-1.1) Eosinophils # (Auto) 0.1 x10^3/uL (0.0-0.7) Basophils # (Auto) 0.1 x10^3/uL (0.0-0.2) Prothrombin Time 12.5 SEC (11.7-14.0) Prothromb Time International Ratio 1.0 (0.8-1.1) Activated Partial Thromboplast Time 38 SEC (24-38) Sodium Level 137 mmol/L (136-145) 139 mmol/L (136-145) Potassium Level 4.5 mmol/L (3.5-5.1) 4.3 mmol/L (3.5-5.1) Chloride Level 101 mmol/L (98-107) 104 mmol/L (98-107) Carbon Dioxide Level 27 mmol/L (21-32) 31 mmol/L (21-32) Anion Gap 9 (6-14) 4 (6-14) Blood Urea Nitrogen 17 mg/dL (7-20) 13 mg/dL (7-20) Creatinine 0.7 mg/dL (0.6-1.0) 0.8 mg/dL (0.6-1.0) Estimated GFR (Cockcroft-Gault) 85.6 73.4 Glucose Level 96 mg/dL (70-99) 86 mg/dL (70-99) Calcium Level 9.4 mg/dL (8.5-10.1) 9.0 mg/dL (8.5-10.1) Total Bilirubin 0.2 mg/dL (0.2-1.0) Direct Bilirubin 0.1 mg/dL (0.0-0.2) Aspartate Amino Transf (AST/SGOT) 21 U/L (15-37) Alanine Aminotransferase (ALT/SGPT) 17 U/L (14-59) Alkaline Phosphatase 73 U/L (46-116) Troponin I Quantitative < 0.017 ng/mL (0.000-0.055) < 0.017 ng/mL (0.000-0.055) UR-Hvd-L-Type Natriuretic Peptide 175 pg/mL (0-124) Total Protein 6.3 g/dL (6.4-8.2) Albumin 2.8 g/dL (3.4-5.0) Lipase 196 U/L (73-393) Thyroid Stimulating Hormone (TSH) 2.703 uIU/mL (0.358-3.74) Urine Collection Type Unknown Urine Color Yellow Urine Clarity Clear Urine pH 6.5 Urine Specific [place] 1.015 Urine Protein Negative mg/dL (NEG-TRACE) Urine Glucose (UA) Negative mg/dL (NEG) Urine Ketones (Stick) Negative mg/dL (NEG) Urine Blood Negative (NEG) Urine Nitrite Negative (NEG) Urine Bilirubin Negative (NEG) Urine Urobilinogen Dipstick 0.2 mg/dL (0.2 mg/dL) Urine Leukocyte Esterase Negative (NEG) Urine RBC 0 /HPF (0-2) Urine WBC Occ /HPF (0-4) Urine Squamous Epithelial Cells Many /LPF Urine Bacteria Few /HPF (0-FEW) Urine Opiates Screen Pos (NEG) Urine Methadone Screen Neg (NEG) Urine Barbiturates Pos (NEG) Urine Phencyclidine Screen Neg (NEG) Urine Amphetamine/Methamphetamine Neg (NEG) Urine Benzodiazepines Screen Pos (NEG) Urine Cocaine Screen Neg (NEG) Urine Cannabinoids Screen Neg (NEG) Urine Ethyl Alcohol Neg (NEG) Triglycerides Level 239 mg/dL (0-150) Cholesterol Level 166 mg/dL (0-200) LDL Cholesterol, Calculated 88 mg/dL (0-100) VLDL Cholesterol, Calculated 48 mg/dL (0-40) Non-HDL Cholesterol Calculated 136 mg/dL (0-129) HDL Cholesterol 30 mg/dL (40-60) Cholesterol/HDL Ratio 5.5 Laboratory Tests Test 05/30/17 18:10 05/30/17 18:15 05/31/17 09:50 White Blood Count 6.1 x10^3/uL (4.0-11.0) Red Blood Count 3.65 x10^6/uL (3.50-5.40) Hemoglobin 12.2 g/dL (12.0-15.5) Hematocrit 36.3 % (36.0-47.0) Mean Corpuscular Volume 100 fL (79-100) Mean Corpuscular Hemoglobin 34 pg (25-35) Mean Corpuscular Hemoglobin Concent 34 g/dL (31-37) Red Cell Distribution Width 16.1 % (11.5-14.5) Platelet Count 161 x10^3/uL (140-400) Neutrophils (%) (Auto) 52 % (31-73) Lymphocytes (%) (Auto) 37 % (24-48) Monocytes (%) (Auto) 8 % (0-9) Eosinophils (%) (Auto) 2 % (0-3) Basophils (%) (Auto) 2 % (0-3) Neutrophils # (Auto) 3.1 x10^3uL (1.8-7.7) Lymphocytes # (Auto) 2.2 x10^3/uL (1.0-4.8) Monocytes # (Auto) 0.5 x10^3/uL (0.0-1.1) Eosinophils # (Auto) 0.1 x10^3/uL (0.0-0.7) Basophils # (Auto) 0.1 x10^3/uL (0.0-0.2) Prothrombin Time 12.5 SEC (11.7-14.0) Prothromb Time International Ratio 1.0 (0.8-1.1) Activated Partial Thromboplast Time 38 SEC (24-38) Sodium Level 137 mmol/L (136-145) 139 mmol/L (136-145) Potassium Level 4.5 mmol/L (3.5-5.1) 4.3 mmol/L (3.5-5.1) Chloride Level 101 mmol/L (98-107) 104 mmol/L (98-107) Carbon Dioxide Level 27 mmol/L (21-32) 31 mmol/L (21-32) Anion Gap 9 (6-14) 4 (6-14) Blood Urea Nitrogen 17 mg/dL (7-20) 13 mg/dL (7-20) Creatinine 0.7 mg/dL (0.6-1.0) 0.8 mg/dL (0.6-1.0) Estimated GFR (Cockcroft-Gault) 85.6 73.4 Glucose Level 96 mg/dL (70-99) 86 mg/dL (70-99) Calcium Level 9.4 mg/dL (8.5-10.1) 9.0 mg/dL (8.5-10.1) Total Bilirubin 0.2 mg/dL (0.2-1.0) Direct Bilirubin 0.1 mg/dL (0.0-0.2) Aspartate Amino Transf (AST/SGOT) 21 U/L (15-37) Alanine Aminotransferase (ALT/SGPT) 17 U/L (14-59) Alkaline Phosphatase 73 U/L (46-116) Troponin I Quantitative < 0.017 ng/mL (0.000-0.055) < 0.017 ng/mL (0.000-0.055) CQ-Eaa-E-Type Natriuretic Peptide 175 pg/mL (0-124) Total Protein 6.3 g/dL (6.4-8.2) Albumin 2.8 g/dL (3.4-5.0) Lipase 196 U/L (73-393) Thyroid Stimulating Hormone (TSH) 2.703 uIU/mL (0.358-3.74) Urine Collection Type Unknown Urine Color Yellow Urine Clarity Clear Urine pH 6.5 Urine Specific [place] 1.015 Urine Protein Negative mg/dL (NEG-TRACE) Urine Glucose (UA) Negative mg/dL (NEG) Urine Ketones (Stick) Negative mg/dL (NEG) Urine Blood Negative (NEG) Urine Nitrite Negative (NEG) Urine Bilirubin Negative (NEG) Urine Urobilinogen Dipstick 0.2 mg/dL (0.2 mg/dL) Urine Leukocyte Esterase Negative (NEG) Urine RBC 0 /HPF (0-2) Urine WBC Occ /HPF (0-4) Urine Squamous Epithelial Cells Many /LPF Urine Bacteria Few /HPF (0-FEW) Urine Opiates Screen Pos (NEG) Urine Methadone Screen Neg (NEG) Urine Barbiturates Pos (NEG) Urine Phencyclidine Screen Neg (NEG) Urine Amphetamine/Methamphetamine Neg (NEG) Urine Benzodiazepines Screen Pos (NEG) Urine Cocaine Screen Neg (NEG) Urine Cannabinoids Screen Neg (NEG) Urine Ethyl Alcohol Neg (NEG) Triglycerides Level 239 mg/dL (0-150) Cholesterol Level 166 mg/dL (0-200) LDL Cholesterol, Calculated 88 mg/dL (0-100) VLDL Cholesterol, Calculated 48 mg/dL (0-40) Non-HDL Cholesterol Calculated 136 mg/dL (0-129) HDL Cholesterol 30 mg/dL (40-60) Cholesterol/HDL Ratio 5.5 Medications Current Medications Fentanyl Citrate (Fentanyl 2ml Vial) 25 mcg PRN Q15MIN PRN IV PAIN GREATER THAN 3/10 Last administered on 05/30/17 18:44; Start 05/30/17 at 18:30; Stop at 18:29 Nitroglycerin (Nitrostat) 0.4 mg PRN Q5MIN PRN SL CHEST PAIN Last administered on 05/30/17 18:51; Start 05/30/17 at 18:30; Stop 05/31/17 at 05:39; Status DC Aspirin (Children'S Aspirin) 324 mg 1X ONCE PO Last administered on 05/30/17 20:46; Start 05/30/17 at 20:30; Stop 05/30/17 at 20:31; Status DC Ondansetron HCl (Zofran) 4 mg PRN Q6HRS PRN IV NAUSEA/VOMITING; Start 05/30/17 at 20:30 Al Hydroxide/Mg Hydroxide (Mylanta Plus Xs) 30 ml PRN Q3HRS PRN PO HEARTBURN / GAS; Start 05/30/17 at 20:30 Calcium Carbonate/ Glycine (Tums) 500 mg PRN Q3HRS PRN PO UPSET STOMACH; Start 05/30/17 at 20:30; Stop 05/31/17 at 05:44; Status DC Oxycodone HCl (Roxicodone) 5 mg PRN Q3HRS PRN PO BREAKTHROUGH PAIN Last administered on 05/31/17 10:57; Start 05/30/17 at 20:30 Morphine Sulfate 1 mg PRN Q1HR PRN IV PAIN; Start 05/30/17 at 20:30 Ketorolac Tromethamine (Toradol) 15 mg PRN Q6HRS PRN IV PAIN; Start 05/30/17 at 20:30; Stop 06/04/17 at 20:29 Acetaminophen (Tylenol) 650 mg PRN Q6HRS PRN PO Headaches, Temp > 101.5F; Start 05/30/17 at 20:30; Stop 05/31/17 at 05:46; Status DC Docusate Sodium (Colace) 100 mg BID PO ; Start 05/31/17 at 09:00 Magnesium Hydroxide (Milk Of Magnesia) 2,400 mg PRN Q12HR PRN PO CONSTIPATION; Start 05/30/17 at 20:30 Lactulose 20 gm PRN Q12HR PRN PO CONSTIPATION; Start 05/30/17 at 20:30; Stop at 05:44; Status DC Bisacodyl (Dulcolax Supp) 10 mg PRN DAILY PRN NC CONSTIPATION; Start 05/30/17 at 20:30 Enoxaparin Sodium (Lovenox 40mg Syringe) 40 mg Q24H SQ Last administered on 23:08; Start 05/30/17 at 21:30; Stop 05/31/17 at 10:35; Status DC Sodium Chloride 1,000 ml @ 100 mls/hr 1X ONCE IV Last administered on 23:02; Start 05/30/17 at 20:45; Stop 05/31/17 at 06:44; Status DC Acetaminophen (Tylenol) 650 mg PRN Q6HRS PRN PO MILD PAIN / TEMP; Start at 05:15 Throat Lozenges (Cepacol Sore Throat Lozenge) 1 elizabeth PRN Q1HR PRN MM SORE THROAT ; Start 05/31/17 at 05:15 Calcium Carbonate/ Glycine (Tums) 500 mg PRN Q6HRS PRN PO HEARTBURN / GAS; Start 05/31/17 at 05:15 Dicyclomine HCl (Bentyl) 10 mg QIDACHS PO Last administered on 9/27/17at 10:08 ; Start 05/31/17 at 07:30 Divalproex Sodium (Depakote Er) 1,000 mg DAILY PO ; Start 05/31/17 at 09:00 Divalproex Sodium (Depakote Er) 1,500 mg QHS PO ; Start 05/31/17 at 21:00 Docusate Sodium (Colace) 100 mg BID PO ; Start 05/31/17 at 09:00; Stop 05/31/17 at 09:00; Status DC Furosemide (Lasix) 20 mg 3X/WEEK PO ; Start 05/31/17 at 09:00 Gabapentin (Neurontin) 100 mg TID PO ; Start 05/31/17 at 09:00 Acetaminophen/ Hydrocodone Bitart (Lortab 7.5/325) 1 tab PRN TID PRN PO PAIN; Start 05/31/17 at 05:15 Albuterol/ Ipratropium (Duoneb) 3 ml RTQID NEB Last administered on 05/31/17t 08:14; Start 05/31/17 at 08:00 Lisinopril (Prinivil) 10 mg DAILY PO ; Start 05/31/17 at 09:00 Nitroglycerin (Nitrostat) 0.4 mg PRN Q5MIN PRN SL CHEST PAIN; Start 05/31/17 at 05:15 Primidone (Mysoline) 50 mg TID PO ; Start 05/31/17 at 09:00 Quetiapine Fumarate (SEROquel) 100 mg BID PO ; Start 05/31/17 at 09:00 Risperidone (RisperDAL) 2 mg BID PO ; Start 05/31/17 at 09:00 Sertraline HCl (Zoloft) 50 mg HS PO ; Start 05/31/17 at 21:00 Sucralfate (Carafate) 1 gm QIDACHS PO Last administered on 05/31/17t 10:07; Start 05/31/17 at 07:30 Amantadine HCl (Symmetrel) 100 mg DAILY PO ; Start 05/31/17 at 09:00 Diazepam (Valium) 10 mg QHS PO ; Start 05/31/17 at 21:00 Flecainide Acetate (Tambocor) 75 mg BID PO ; Start 05/31/17 at 09:00; Stop 05/31 at 09:55; Status DC Lactulose 20 gm PRN BID PRN PO CONSTIPATION; Start 05/31/17 at 05:15 Non-Formulary Medication 30 ml PRN Q2HRS PRN PO GI SYMPTOMS; Start 05/31/17 at 05:15; Stop 05/31/17 at 05:46; Status DC Zolpidem Tartrate (Ambien) 5 mg QHS PO ; Start 05/31/17 at 21:00 Fish Oil (Fish Oil) 1,000 mg BID PO ; Start 05/31/17 at 09:00 Pantoprazole Sodium (Protonix) 40 mg HS PO ; Start 05/31/17 at 21:00 Potassium Chloride (Klor-Con) 10 meq 3X/WEEK PO ; Start 05/31/17 at 09:00 Trihexyphenidyl HCl (Artane) 5 mg BID PO ; Start 05/31/17 at 09:00 Enoxaparin Sodium (Lovenox 40mg Syringe) 40 mg BID SQ ; Start 05/31/17 at 11:00 Active Scripts Active Reported Tylenol (Acetaminophen) 325 Mg Tablet 2 Tab PO PRN Q6HRS PRN Trihexyphenidyl Hcl 5 Mg Tablet 1 Tab PO BID Sucralfate 1 Gm/10 Ml Oral.susp 10 Ml PO QIDACHS Zoloft (Sertraline Hcl) 50 Mg Tablet 1 Tab PO HS Risperdal (Risperidone) 1 Mg Tablet 2 Tab PO BID Seroquel (Quetiapine Fumarate) 100 Mg Tablet 100 Mg PO BID Primidone 50 Mg Tablet 50 Mg PO TID Potassium Chloride 10 Meq Capsule.er 10 Meq PO 3X/WEEK Omeprazole 40 Mg Capsule.dr 1 Cap PO HS [place] 3 Fish Oil Softgel ([place]-3 Fatty Acids/Fish Oil) 1 Each Capsule.dr 1 Each PO BID NITROGLYCERIN SubLingual (Nitroglycerin) 0.4 Mg Tab.subl 0.4 Mg SL PRN Q5MIN PRN Alum-Mag Hydroxide-Simeth Liq (Mag Hydrox/Al Hydrox/Simeth) 360 Ml Oral.susp 30 Ml PO PRN Q2HRS PRN Cepacol Sore Throat Lozenge (Benzocaine/Menthol) 1 Each Lozenge 1 Each MM PRN Q1HR PRN Melatonin 3 Mg Tablet 2 Tab PO QHS Lisinopril 10 Mg Tablet 1 Tab PO DAILY Lactulose 20 Gm/30 Ml Solution 20 Gm PO PRN BID PRN Hydrocodone-Apap 7.5-325 (Hydrocodone Bit/Acetaminophen) 1 Each Tablet 1 Tab PO PRN TID PRN Gabapentin 100 Mg Capsule 100 Mg PO TID Furosemide 20 Mg Tablet 1 Tab PO 3X/WEEK Flecainide Acetate 100 Mg Tablet 75 Mg PO BID Duoneb 0.5-3(2.5) Mg/3 Ml (Albuterol/Ipratropium) 3 Ml Ampul.neb 3 Ml NEB QID Docusate Sodium 100 Mg Capsule 1 Cap PO BID Bentyl (Dicyclomine Hcl) 10 Mg Capsule 10 Mg PO QIDACHS Diazepam 10 Mg Tablet 10 Mg PO QHS Depakote Er (Divalproex Sodium) 250 Mg Tab.er.24h 4 Tab PO DAILY Depakote Er (Divalproex Sodium) 250 Mg Tab.er.24h 6 Tab PO QHS Calcium Carbonate 200 Mg Tab.chew 400 Mg PO PRN Q6HRS PRN Amantadine (Amantadine Hcl) 100 Mg Tablet 1 Tab PO DAILY Vitals/I & O Vital Sign - Last 24 Hours 05/30/17 05/30/17 05/30/17 05/30/17 18:00 18:30 18:32 18:44 Temp 97.6 97.6 Pulse 59 54 69 Resp 23 33 19 B/P (MAP) 113/62 (79) 107/59 (75) 114/59 Pulse Ox 95 94 93 O2 Delivery Room Air Room Air Room Air 05/30/17 05/30/17 05/30/17 05/30/17 18:51 19:00 19:30 19:45 Pulse 51 66 44 Resp 20 13 10 B/P (MAP) 107/59 115/67 (83) 122/59 (80) Pulse Ox 93 98 95 O2 Delivery Room Air Room Air 05/30/17 05/30/17 05/30/17 05/30/17 20:00 20:30 21:55 22:45 Temp 97.8 97.8 Pulse 48 52 54 56 Resp 10 14 17 20 B/P (MAP) 123/70 (87) 146/80 (102) 156/74 (101) 133/63 (86) Pulse Ox 98 97 94 95 O2 Delivery Room Air Room Air Room Air Room Air 05/30/17 05/30/17 05/30/1717 22:45 23:00 23:03 02:47 Temp 97.8 97.8 Pulse 56 Resp 20 20 20 B/P (MAP) 133/63 (86) Pulse Ox 95 95 95 O2 Delivery Room Air Room Air Room Air Room Air 05/31/17 05/31/17 05/31/17 05/31/17 03:00 03:47 07:00 08:16 Temp 98.5 98.4 98.5 98.4 Pulse 70 63 Resp 20 22 20 B/P (MAP) 119/53 (75) 123/47 (72) Pulse Ox 92 92 96 O2 Delivery Room Air Room Air Room Air Nasal Cannula O2 Flow Rate 2.0 05/31/17 10:57 O2 Delivery Room Air TANYA COOK MD May 31, 2017 11:30
[2017-05-31] MEDS: HYDROcodone/APAP 7.5/325MG 1 TAB TABLET PO SCH ×2 (12:05→21:10)
[2017-05-31] MEDS: NYSTATIN TOPICAL POWDER 15GM BOTTLE. TP SCH ×2 (12:06→21:00)
[2017-05-31 15:00] VITALS: BP 102/46
--- NOTE | 2017-05-31 15:57 | CARD ---
APPROVED REPORT EXAM: Two-dimensional and M-mode echocardiogram with Doppler and color Doppler. Other Information Quality : GoodHR: 51bpm Rhythm : Bradycardia INDICATION Bradycardia RISK FACTORS Obesity 2D DIMENSIONS RVDd3.3 (2.9-3.5cm)Left Atrium(2D)3.9 (1.6-4.0cm) IVSd1.0 (0.7-1.1cm)Aortic Root(2D)2.9 (2.0-3.7cm) LVDd4.9 (3.9-5.9cm)LVOT Diameter2.4 (1.8-2.4cm) PWd1.0 (0.7-1.1cm)LVDs3.1 (2.5-4.0cm) FS (%) 36.4 %SV75.6 ml LVEF(%)65.9 (>50%) Aortic Valve AoV Peak Bashir.168.1cm/sAoV VTI37.0cm AO Peak GR.11.3mmHgLVOT Peak Bashir.116.0cm/s AO Mean GR.7mmHgAVA (VMAX)3.17cm2 Mitral Valve MV E Qcvsulyt209.4cm/sMV E Peak Gr.6mmHg MV DECEL [id number] A Jvwuxbsk11.8cm/s MV E Mean Gr.2mmHgE/A Ratio1.3 MV A [id number] Pulmonary Vein S1 Zmxnqszh74.3cm/sD2 Tfyouhgw39.6cm/s PVa [id number] LEFT VENTRICLE The left ventricle is normal size. There is normal left ventricular wall thickness. The left ventricu lar systolic function is normal and the ejection fraction is within normal range. The Ejection Fracti on is 60-65%. There is normal LV segmental wall motion. The left ventricular diastolic function and f illing is normal for age. RIGHT VENTRICLE The right ventricle is normal size. There is normal right ventricular wall thickness. The right ventr icular systolic function is normal. ATRIA The left atrium size is normal. The right atrium size is normal. The interatrial septum is intact wit h no evidence for an atrial septal defect or patent foramen ovale as noted on 2-D or Doppler imaging. AORTIC VALVE The aortic valve is not well visualized but appears mildly calcified and opens adequately. Doppler an d Color Flow revealed no significant aortic regurgitation. There is no significant aortic valvular st enosis. MITRAL VALVE The mitral valve leaflets are mildly thickened. There is no evidence of mitral valve prolapse. There is no mitral valve stenosis. Doppler and Color Flow revealed no mitral valve regurgitation noted. TRICUSPID VALVE Doppler and Color Flow revealed no tricuspid valve regurgitation noted. There is no pulmonary hyperte nsion. PULMONIC VALVE The pulmonic valve was obscured, unable to assess. GREAT VESSELS The aortic root is normal in size. The ascending aorta is normal in size. The pulmonary artery was ob scured, unable to assess. The IVC is normal in size and collapses >50% with inspiration. PERICARDIAL EFFUSION There is no evidence of significant pericardial effusion. Critical Notification Critical Value: No <Conclusion> The left ventricle is normal size. The left ventricular systolic function is normal and the ejection fraction is within normal range. The Ejection Fraction is 60-65%. There is no significant aortic valvular stenosis. Doppler and Color Flow revealed no significant aortic regurgitation. Doppler and Color Flow revealed no mitral valve regurgitation noted. Doppler and Color Flow revealed no tricuspid valve regurgitation noted. There is no pulmonary hypertension. There is no evidence of significant pericardial effusion.
[2017-05-31] MEDS: MAGNESIUM HYDROXIDE 2,400 MG/30 ML ORAL.SUSP. PO PRN (18:01)
[2017-05-31 19:24] VITALS: BP 125/61
[2017-05-31] MEDS ORDERED: diazePAM 5 MG TABLET PO SCH (21:00)
[2017-05-31] MEDS ORDERED: ZOLPIDEM 5 MG TABLET. PO SCH (21:00)
[2017-05-31] MEDS ORDERED: PANTOPRAZOLE 40 MG TABLET.DR. PO SCH (21:00)
[2017-05-31] MEDS ORDERED: SERTRALINE 50 MG TABLET. PO SCH (21:00)
[2017-05-31] MEDS ORDERED: DIVALPROEX EXTENDED RELEASE 500 MG TAB.ER.24H. PO SCH (21:00)
[2017-05-31 22:00] VITALS: BP 105/52
[2017-05-31] MEDS ORDERED: IPRATRPIUM/ALBUTEROL 0.5/2.5MG 3 ML NEBU. NEB ONE (23:00)
[2017-06-01 03:59] VITALS: BP 128/60
[2017-06-01] MEDS: oxyCODONE IR 5 MG TABLET PO PRN (06:56)
[2017-06-01 07:00] VITALS: BP 114/51
[2017-06-01] MEDS: IPRATRPIUM/ALBUTEROL 0.5/2.5MG 3 ML NEBU. NEB SCH ×3 (07:27→15:19)
[2017-06-01] MEDS ORDERED: IPRATRPIUM/ALBUTEROL 0.5/2.5MG 3 ML NEBU. NEB SCH (08:00)
[2017-06-01] MEDS: DICYCLOMINE HCL 10 MG CAPSULE PO SCH ×2 (08:14→12:02)
[2017-06-01] MEDS: SUCRALFATE 1 GM/10 ML ORAL.SUSP. PO SCH ×2 (08:14→12:03)
[2017-06-01] MEDS: ENOXAPARIN 40 MG/0.4 ML SYRINGE. SQ SCH (09:00)
[2017-06-01] MEDS: OMEGA-3 FATTY ACIDS/FISH OIL 1,000 MG CAPSULE. PO SCH (09:00)
[2017-06-01] MEDS: DOCUSATE SODIUM 100 MG CAPSULE. PO SCH (09:26)
[2017-06-01] MEDS: GABAPENTIN 100 MG CAPSULE. PO SCH ×2 (09:26→15:02)
[2017-06-01] MEDS: QUEtiapine 100 MG TABLET. PO SCH (09:26)
[2017-06-01] MEDS: AMANTADINE HCL 100 MG CAPSULE PO SCH (09:26)
[2017-06-01] MEDS: TRIHEXYPHENIDYL 2 MG TABLET. PO SCH (09:26)
[2017-06-01] MEDS: PRIMIDONE 50 MG TABLET PO SCH ×2 (09:26→15:02)
[2017-06-01] MEDS: LISINOPRIL 10 MG TABLET PO SCH (09:27)
[2017-06-01] MEDS: HYDROcodone/APAP 7.5/325MG 1 TAB TABLET PO SCH ×2 (09:27→15:02)
[2017-06-01] MEDS: DIVALPROEX EXTENDED RELEASE 250 MG TAB.ER.24H. PO SCH (09:28)
[2017-06-01] MEDS: risperiDONE 1 MG TABLET. PO SCH (09:32)
[2017-06-01 11:00] VITALS: BP 101/42
--- NOTE | 2017-06-01 11:57 | PDOC ---
CARDIO Progress Notes Date and Time Date of Service 06/01/2017 Time of Evaluation 1045 Subjective Subjective: No Chest Pain, No shortness of breath, No Palpitations, No Dizziness, Other (feels better today, did not sleep well, complaining of constipation , asking for prune juice) Vitals Vitals Vital Signs Date Time Temp Pulse Resp B/P (MAP) Pulse Ox O2 Delivery O2 Flow Rate FiO2 06/01/17 11:29 93 Nasal Cannula 2.0 06/01/17 09:27 62 114/51 06/01/17 07:00 97.4 17 97.4 Weight Weight [ ] Physical Exam HEENT: Neck Supple W Full Motion Chest: Symmetric LUNGS: Other (diminished bases) Heart: S1S2, RRR (SR-SB) Abdomen: Soft N/T, Other (obese) Extremities: No Calf Tenderness Neurology: alert, oriented, follow commands Assessment Assessment 1. Atypical CP: Noncardiac, suspect MSK. 2. Asymptomatic Sinus Bradycardia: Lowest 40s, likely vagal mainly during sleep. Possibility of CAREN component could not be ruled out. No pauses or other significant ectopies 3. Possible hx of PAFIB: No episodes. No detailed hx in regards to this. Pt was on flecainide without supportive BB or CCB and no ASA nor NOAC 4. Tobaccoism 5. Hx of head injury. 6. Hx of Seizures and possible med induced parkinsons 7. Morbid obesity/debility: BMI 42 8. Suspecting CAREN. 9. Polypharmacy: would also contribute with bradycardia episode Recommendations 1. TTE is unremarkable for significant changes. Do not resume flecainide. Initiate 4 wk outpt event monitor prior to DC if SNU would allow it. F/U in office in 5 weeks. 2. Pt is allergic to ASA. Will reeval for NOAC use pending event monitor result , per AFIB burden and any further arrhythmia episodes. 3. Smoking cessation. DINESH CROW APRN Jun 01, 2017 11:57
[2017-06-01] MEDS: NYSTATIN TOPICAL POWDER 15GM BOTTLE. TP SCH (12:02)
[2017-06-01] MEDS: MAGNESIUM HYDROXIDE 2,400 MG/30 ML ORAL.SUSP. PO PRN (12:02)
--- NOTE | 2017-06-01 12:03 | PDOC3 ---
Discharge Summary Visit Information Date of Admission: May 30, 2017 Date of Discharge: Jun 01, 2017 Admitting Diagnosis Comment: 1. CP 2. Bradycardia 3. INMA 4. Obesity with BMI 41.8 5. MEntal delay, some 6. Chronic back pain Final Diagnosis Problems Medical Problems: (1) Chest pain Status: Acute Brief Hospital Course Allergies Allergies Coded Allergies Type Severity Reaction Last Updated Verified sulfamethoxazole Allergy Severe Hives 05/30/17 Yes ibuprofen Adverse Reaction Severe 05/30/17 Yes prochlorperazine Adverse Reaction Severe Swelling 05/30/17 Yes carisoprodol Adverse Reaction Intermediate 05/30/17 Yes Penicillins Adverse Reaction Mild Nausea 06/01/17 Yes diphenhydramine Adverse Reaction Mild Nausea 06/01/17 Yes Vital Signs Vital Signs Date Time Temp Pulse Resp B/P (MAP) Pulse Ox O2 Delivery O2 Flow Rate FiO2 06/01/17 11:29 93 Nasal Cannula 2.0 06/01/17 09:27 62 114/51 06/01/17 07:00 97.4 17 97.4 Lab Results Laboratory Tests Test 05/30/17 18:10 05/30/17 18:15 05/30/17 23:00 05/31/17 09:50 White Blood Count 6.1 x10^3/uL (4.0-11.0) Red Blood Count 3.65 x10^6/uL (3.50-5.40) Hemoglobin 12.2 g/dL (12.0-15.5) Hematocrit 36.3 % (36.0-47.0) Mean Corpuscular Volume 100 fL (79-100) Mean Corpuscular Hemoglobin 34 pg (25-35) Mean Corpuscular Hemoglobin Concent 34 g/dL (31-37) Red Cell Distribution Width 16.1 % (11.5-14.5) Platelet Count 161 x10^3/uL (140-400) Neutrophils (%) (Auto) 52 % (31-73) Lymphocytes (%) (Auto) 37 % (24-48) Monocytes (%) (Auto) 8 % (0-9) Eosinophils (%) (Auto) 2 % (0-3) Basophils (%) (Auto) 2 % (0-3) Neutrophils # (Auto) 3.1 x10^3uL (1.8-7.7) Lymphocytes # (Auto) 2.2 x10^3/uL (1.0-4.8) Monocytes # (Auto) 0.5 x10^3/uL (0.0-1.1) Eosinophils # (Auto) 0.1 x10^3/uL (0.0-0.7) Basophils # (Auto) 0.1 x10^3/uL (0.0-0.2) Prothrombin Time 12.5 SEC (11.7-14.0) Prothromb Time International Ratio 1.0 (0.8-1.1) Activated Partial Thromboplast Time 38 SEC (24-38) Sodium Level 137 mmol/L (136-145) 139 mmol/L (136-145) Potassium Level 4.5 mmol/L (3.5-5.1) 4.3 mmol/L (3.5-5.1) Chloride Level 101 mmol/L (98-107) 104 mmol/L (98-107) Carbon Dioxide Level 27 mmol/L (21-32) 31 mmol/L (21-32) Anion Gap 9 (6-14) 4 (6-14) Blood Urea Nitrogen 17 mg/dL (7-20) 13 mg/dL (7-20) Creatinine 0.7 mg/dL (0.6-1.0) 0.8 mg/dL (0.6-1.0) Estimated GFR (Cockcroft-Gault) 85.6 73.4 Glucose Level 96 mg/dL (70-99) 86 mg/dL (70-99) Calcium Level 9.4 mg/dL (8.5-10.1) 9.0 mg/dL (8.5-10.1) Total Bilirubin 0.2 mg/dL (0.2-1.0) Direct Bilirubin 0.1 mg/dL (0.0-0.2) Aspartate Amino Transf (AST/SGOT) 21 U/L (15-37) Alanine Aminotransferase (ALT/SGPT) 17 U/L (14-59) Alkaline Phosphatase 73 U/L (46-116) Troponin I Quantitative < 0.017 ng/mL (0.000-0.055) < 0.017 ng/mL (0.000-0.055) TI-Sny-Z-Type Natriuretic Peptide 175 pg/mL (0-124) Total Protein 6.3 g/dL (6.4-8.2) Albumin 2.8 g/dL (3.4-5.0) Lipase 196 U/L (73-393) Thyroid Stimulating Hormone (TSH) 2.703 uIU/mL (0.358-3.74) Urine Collection Type Unknown Urine Color Yellow Urine Clarity Clear Urine pH 6.5 Urine Specific [place] 1.015 Urine Protein Negative mg/dL (NEG-TRACE) Urine Glucose (UA) Negative mg/dL (NEG) Urine Ketones (Stick) Negative mg/dL (NEG) Urine Blood Negative (NEG) Urine Nitrite Negative (NEG) Urine Bilirubin Negative (NEG) Urine Urobilinogen Dipstick 0.2 mg/dL (0.2 mg/dL) Urine Leukocyte Esterase Negative (NEG) Urine RBC 0 /HPF (0-2) Urine WBC Occ /HPF (0-4) Urine Squamous Epithelial Cells Many /LPF Urine Bacteria Few /HPF (0-FEW) Urine Opiates Screen Pos (NEG) Urine Methadone Screen Neg (NEG) Urine Barbiturates Pos (NEG) Urine Phencyclidine Screen Neg (NEG) Urine Amphetamine/Methamphetamine Neg (NEG) Urine Benzodiazepines Screen Pos (NEG) Urine Cocaine Screen Neg (NEG) Urine Cannabinoids Screen Neg (NEG) Urine Ethyl Alcohol Neg (NEG) Nasal Screen MRSA (PCR) Negative (Negative) Triglycerides Level 239 mg/dL (0-150) Cholesterol Level 166 mg/dL (0-200) LDL Cholesterol, Calculated 88 mg/dL (0-100) VLDL Cholesterol, Calculated 48 mg/dL (0-40) Non-HDL Cholesterol Calculated 136 mg/dL (0-129) HDL Cholesterol 30 mg/dL (40-60) Cholesterol/HDL Ratio 5.5 Brief Hospital Course Ms. Deras is a 61 old obese female with some mild MR, [facility] resident admitted for CP and bradycardia, CArds adjusted meds, basically only change is to stop fleicanide, CP resolved with no signif intervention, BAck to SNU, CAn be very particular with her home meds and pain meds as current home regimen works well for her. Seen and examined Time 34 mins MAR done Discharge Information Condition at Discharge: Improved, Stable Disposition/Orders: Other ([facility]NU) Scheduled Amantadine Hcl (Amantadine), 1 TAB PO DAILY, (Reported) Diazepam (Diazepam), 10 MG PO QHS, (Reported) Dicyclomine Hcl (Bentyl), 10 MG PO QIDACHS, (Reported) Divalproex Sodium (Depakote Er), 6 TAB PO QHS, (Reported) Divalproex Sodium (Depakote Er), 4 TAB PO DAILY, (Reported) Docusate Sodium (Docusate Sodium), 1 CAP PO BID, (Reported) Flecainide Acetate (Flecainide Acetate), 75 MG PO BID, (Reported) Furosemide (Furosemide), 1 TAB PO 3X/WEEK, (Reported) Gabapentin (Gabapentin), 100 MG PO TID, (Reported) Ipratropium/Albuterol Sulfate (Duoneb 0.5-3(2.5) Mg/3 Ml), 3 ML NEB QID, ( Reported) Lisinopril (Lisinopril), 1 TAB PO DAILY, (Reported) Melatonin (Melatonin), 2 TAB PO QHS, (Reported) [place]-3 Fatty Acids/Fish Oil ([place] 3 Fish Oil Softgel), 1 EACH PO BID, ( Reported) Omeprazole (Omeprazole), 1 CAP PO HS, (Reported) Potassium Chloride (Potassium Chloride), 10 MEQ PO 3X/WEEK, (Reported) Primidone (Primidone), 50 MG PO TID, (Reported) Quetiapine Fumarate (Seroquel), 100 MG PO BID, (Reported) Risperidone (Risperdal), 2 TAB PO BID, (Reported) Sertraline Hcl (Zoloft), 1 TAB PO HS, (Reported) Sucralfate (Sucralfate), 10 ML PO QIDACHS, (Reported) Trihexyphenidyl Hcl (Trihexyphenidyl Hcl), 1 TAB PO BID, (Reported) Scheduled PRN Acetaminophen (Tylenol), 2 TAB PO PRN Q6HRS PRN for MILD PAIN / TEMP, (Reported) Benzocaine/Menthol (Cepacol Sore Throat Lozenge), 1 EACH MM PRN Q1HR PRN for SORE THROAT, (Reported) Calcium Carbonate (Calcium Carbonate), 400 MG PO PRN Q6HRS PRN for HEARTBURN / GAS, (Reported) Hydrocodone Bit/Acetaminophen (Hydrocodone-Apap 7.5-325 ), 1 TAB PO PRN TID PRN for PAIN, (Reported) Lactulose (Lactulose), 20 GM PO PRN BID PRN for CONSTIPATION, (Reported) Mag Hydrox/Al Hydrox/Simeth (Alum-Mag Hydroxide-Simeth Liq), 30 ML PO PRN Q2HRS PRN for GI SYMPTOMS, (Reported) Nitroglycerin (NITROGLYCERIN SubLingual), 0.4 MG SL PRN Q5MIN PRN for CHEST PAIN , (Reported) TANYA COOK MD Jun 01, 2017 12:03
[2017-06-01 15:00] VITALS: BP 131/57
== END 2017-06-01 16:11 | DRG 682 ==
LOC: ER 17:58 → 2 SOUTH 20:23
PROVIDERS: ADMIT Internal Medicine; ATTEND Internal Medicine
DX: N17.9 Acute kidney failure, unspecified (principal); E43 Unspecified severe protein-calorie malnutrition; E11.40 Type 2 diabetes mellitus with diabetic neuropathy, unspecified; G20 Parkinson's disease; I48.91 Unspecified atrial fibrillation; Z68.41 Body mass index [BMI] 40.0-44.9, adult; R07.89 Other chest pain; M54.5 Low back pain; E66.01 Morbid (severe) obesity due to excess calories; F17.210 Nicotine dependence, cigarettes, uncomplicated; F20.9 Schizophrenia, unspecified; G89.29 Other chronic pain; I10 Essential (primary) hypertension; K21.9 Gastro-esophageal reflux disease without esophagitis; Z87.11 Personal history of peptic ulcer disease; F32.9 Major depressive disorder, single episode, unspecified; F41.9 Anxiety disorder, unspecified; M19.90 Unspecified osteoarthritis, unspecified site; Z87.828 Personal history of other (healed) physical injury and trauma; Z88.6 Allergy status to analgesic agent; Z88.1 Allergy status to other antibiotic agents; Z88.0 Allergy status to penicillin; Z88.2 Allergy status to sulfonamides; Z88.8 Allergy status to other drugs, medicaments and biological substances; Z71.6 Tobacco abuse counseling; I34.0 Nonrheumatic mitral (valve) insufficiency
CPT/HCPCS: 36415; 51701; 71010; 80048; 80061; 80076; 80307; 81001; 83690; 83880; 84443; 84484; 85025; 85610; 85730; 87641; 93005; 93306; 93970; 94250; 94640; 94760; 96374; J1650; J2405; J3010; J7030; J7620; 97116; 99285-25; G0479

== ENCOUNTER 2018-05-12 15:08 | Emergency (ER) | payer MEDICARE, OTHER ==
[~2018-05-12] VITALS: Ht 170.2 cm; Wt 127.5 kg
[~2018-05-12 15:08] MED LIST: ACET325T9 PO; AMAN100T PO; BENZ1LOZ48 MM; CALC200T23 PO; DIAZEPAM10 MG PO; DICY10CA53 PO; DIVA250T PO; DOCU100C28 PO; FLEC100T PO; FURO20TA3 PO; GABA-585 PO; HYDR-2762 PO; IPRA3AMP29 NEB; LACT20SO PO; LISI10TA2 PO; MAG360OR24 PO; MELA3TAB2 PO; NITR0.4T22 SL; OMEG1CAP38 PO; OMEP40CA5 PO; POTA10TA12 PO; PRIM50TA PO; QUET100T4 PO; RISP1TAB43 PO; SERT50TA PO; SUCR1ORA11 PO; TRIH5TAB2 PO
[2018-05-12 15:30] VITALS: BP 104/57
[2018-05-12] MEDS ORDERED: ALBUTEROL SULFATE 2.5 MG/3 ML NEBU. CONT NEB ONE (15:30)
[2018-05-12] MEDS ORDERED: IPRATROPIUM BROMIDE 0.5 MG/2.5 ML NEBU. NEB ONE (15:30)
[2018-05-12] MEDS ORDERED: IPRA3AMP29 NEB (15:55)
--- NOTE | 2018-05-12 15:56 | PHYS DOC ---
Past Medical History Past Medical History: A-Fib, Anemia, Anxiety, Depression, Hypertension, Seizure , Schizophrenia Additional Past Medical Histor: PEPTIC ULCER, PARKINSON'S DISEASE Alcohol Use: None Drug Use: None Adult General Chief Complaint Chief Complaint: SHORTNESS OF BREATH HPI HPI Patient is a 62 year old F who presents with shortness of breath and confusion. EMS reports patient was diagnosed with pneumonia couple days ago. She was supposed to be on oxygen as needed at the group home. She was talking to her who lives in a group home and [place], when he noticed that she was confused and had increased work of breathing. He alerted 911 to the facility. Upon arrival to the facility, EMS reports patient had 3 L via mask and had taken it off. Her room air saturations were 80%. The chain maker machine reports he immediately placed her on 4 L via nasal cannula and shortly after, she became much more alert and oriented. She initially refused transport, but was convinced to come to the ER. Patient does have a history of schizophrenia. Review of Systems Review of Systems Constitutional: Denies fever or chills [] Respiratory: Reports cough and shortness of breath Cardiovascular: No chest pain or palpitations GI: Denies abdominal pain, nausea, vomiting. Neurologic: Denies headache, focal weakness or sensory changes [] All other systems were reviewed and found to be within normal limits, except as documented in this note. Current Medications Current Medications Current Medications Medications (Trade) Dose Ordered Sig/Yoan Start Time Stop Time Status Last Admin Dose Admin Albuterol Sulfate (Ventolin Neb Soln) 10 mg 1X ONCE 05/12/18 15:30 05/12/18 15:31 DC Albuterol/ Ipratropium (Duoneb) 3 ml STK-MED ONCE 05/12/18 15:57 05/12/18 15:58 DC Ipratropium [place] (Atrovent) 0.5 mg 1X ONCE 05/12/18 15:30 05/12/18 15:31 DC Allergies Allergies Allergies Coded Allergies Type Severity Reaction Last Updated Verified sulfamethoxazole Allergy Severe Hives 05/30/17 Yes ibuprofen Adverse Reaction Severe 05/30/17 Yes prochlorperazine Adverse Reaction Severe Swelling 05/30/17 Yes carisoprodol Adverse Reaction Intermediate 05/30/17 Yes Penicillins Adverse Reaction Mild Nausea 06/01/17 Yes diphenhydramine Adverse Reaction Mild Nausea 06/01/17 Yes Physical Exam Physical Exam Constitutional: Well developed, well nourished, no acute distress, non-toxic appearance. Suboptimal hygiene. [] HENT: Normocephalic, atraumatic Eyes: PERRLA, EOMI, conjunctiva normal, no discharge. [] Neck: Normal range of motion, no tenderness, supple, no stridor. [] Cardiovascular:Heart rate regular rhythm, no murmur [] Lungs & Thorax: Bilateral breath sounds diminished with wheezing throughout Abdomen: Bowel sounds normal, soft, no tenderness Skin: Warm, dry, no erythema, no rash. [] Back: No tenderness, no CVA tenderness. [] Extremities: No tenderness, no cyanosis Neurologic: Alert and oriented X 3, normal motor function, normal sensory function, no focal deficits noted. [] Psychologic: Affect normal, judgement normal, mood normal. [] Current Patient Data Vital Signs Vital Signs Date Time Temp Pulse Resp B/P (MAP) Pulse Ox O2 Delivery O2 Flow Rate FiO2 05/12/18 16:02 96 Nasal Cannula 4.0 05/12/18 15:30 98.8 71 20 104/57 (73) 98.8 EKG EKG [] Radiology/Procedures Radiology/Procedures [] Course & Med Decision Making Course & Med Decision Making Pertinent Labs and Imaging studies reviewed. (See chart for details) 1540 -- patient is refusing all lab work and IV access. Explained to patient that she may require hospitalization for her pneumonia. Patient reports she does not consent to have blood drawn and does not want to have IV antibiotics. She is alert and oriented at this time and she verbalized understanding of risks. Plan: Patient will sign out AMA, she will continue her azithromycin that was previously prescribed, she should get a DuoNeb treatment every 4 hours while awake at the nursing facility. Follow up with PCP, return precautions reviewed 1600 -- patient has now decided she will stay and get her blood drawn and an iv. Will proceed with original plan. 1630 -- patient again refusing treatment. She will d/c home Dragon Disclaimer Dragon Disclaimer This electronic medical record was generated, in whole or in part, using a voice recognition dictation system. Departure Departure Impression: Primary Impression: Dyspnea Disposition: AGAINST MEDICAL ADVICE Condition: STABLE Referrals: FARRUKH BHATTI (PCP) Patient Instructions: Pneumonia, Adult Additional Instructions: Call for a follow up with patient's PCP, return to ER for increasing shortness of breath or confusion and as needed Scripts Ipratropium/Albuterol Sulfate (DUONEB 0.5-3(2.5) MG/3 ML) 3 Ml Ampul.neb 3 ML NEB Q4HRS W/A, #75 EACH 0 Refills Prov: JARED RUDD APRN 05/12/18 Problem Qualifiers Primary Impression: Dyspnea Dyspnea type: shortness of breath Qualified Codes: R06.02 - Shortness of breath JARED RUDD APRN May 12, 2018 15:56
[2018-05-12] MEDS ORDERED: IPRATRPIUM/ALBUTEROL 0.5/2.5MG 3 ML NEBU. ONE (15:57)
[2018-05-12] MEDS ORDERED: IPRATRPIUM/ALBUTEROL 0.5/2.5MG 3 ML NEBU. NEB ONE (16:00)
--- NOTE | 2018-05-13 09:51 | EKG ---
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
== END 2018-05-12 17:34 | disposition left against medical advice (07) ==
LOC: ER 15:08
DX: R06.00 Dyspnea, unspecified (principal); F20.9 Schizophrenia, unspecified; R41.0 Disorientation, unspecified; Z88.0 Allergy status to penicillin; Z88.1 Allergy status to other antibiotic agents; Z88.2 Allergy status to sulfonamides; Z88.6 Allergy status to analgesic agent
CPT/HCPCS: 93005; 94640; 99283; J7620